=== PATIENT | female | born 1970 | race Caucasian/White ===

== ENCOUNTER 2018-01-07 11:52 | Day surgery (SDC) | payer OTHER ==
[2018-01-07] MEDS ORDERED: ACETAMINOPHEN 325 MG TABLET (FP) PO ONE (12:06)
--- NOTE | 2018-01-07 12:06 | HP ---
Satellite PMH - Chief Complaint Chief Complaint: fatigue. SAEED , SOB History of Present Illness: Seen in office for anemia. Office blood work with hgb of 7.7, low ferritin, no bleeding. pt is symptomatic. advised to come in for PRBCs. Awaiting GI appt. History Source: Patient - Past Medical History Allergies/Adverse Reactions: Allergies Allergy/AdvReac Type Severity Reaction Status Date / Time No Known Allergies Allergy Verified 12/24/12 23:59 - Current Medications Current Medications: Home Medications Medication Instructions Recorded Ferrous Sulfate *Liquid* [Feosol] 220 mg PO DAILY 12/24/12 Amoxicillin - [Amoxicillin 250mg 250 mg PO TID #30 capsule 12/25/12 Capsule -] Satellite Physical Exam - Physical Examination General Appearance: Pallor Lung: Clear to auscultation Heart: Regular rate & rhythm Abdomen: Soft Extremities: No edema Neurological: Alert, Oriented Satellite Impression/Plan - Impression/Plan Impression: for 2U PRBCS. GI f/u as an OP
[2018-01-07 12:50] LABS: BASO % 1.2 % (0-2.0); EOS % 1.6 % (0-4.5); HEMATOCRIT 25.4 % (32.4-45.2); HEMOGLOBIN 7.3 GM/dL (10.7-15.3); LYMPH % 39.4 % (8-40); MCHC 28.7 g/dl (32.0-36.0); MEAN CELL VOLUME 60.8 fl (80-96); MEAN PLT VOLUME 8.2 fl (7.5-11.1); MONO % 11.4 % (3.8-10.2); NEUT % 46.4 % (42.8-82.8); PLATELET COUNT 480 K/MM3 (134-434); RBC 4.18 M/mm3 (3.60-5.2); RDW 19.3 % (11.6-15.6); WHITE BLOOD COUNT 4.3 K/mm3 (4.0-10.0)
[2018-01-07 12:53] LABS: MCH 17.5 pg (25.7-33.7)
[2018-01-07 13:17] VITALS: BP 122/76; PULSE 93; TEMP 98
== END 2018-01-07 23:59 | disposition home or self-care (01) ==
LOC: JBLOOD 11:52 → J7W 11:56 → JBLOOD 23:59
PROVIDERS: ATTEND Internal Medicine Hematology & Oncology
PROC: 30233N1 Transfusion of Nonautologous Red Blood Cells into Peripheral Vein, Percutaneous Approach (ICD-10-PCS; principal; 2018-01-07)
DX: D50.9 Iron deficiency anemia, unspecified (principal)
CPT/HCPCS: 36415; 36430; 36511; 85025; 86850; 86900; 86901; 86922; P9038; P9058

== ENCOUNTER 2018-01-19 07:57 | Day surgery (SDC) | payer OTHER ==
[2018-01-19] MEDS ORDERED: ACETAMINOPHEN 325 MG TABLET (FP) PO ONE (10:00)
[2018-01-19] MEDS ORDERED: DIPHENHYDRAMINE 50 MG in SODIUM CHLORIDE 100 ML IVPB ONE (10:00)
[2018-01-19] MEDS ORDERED: FERRIC CARBOXYMALTOSE 750 MG in SODIUM CHLORIDE 250 ML IVPB ONE (10:30)
[2018-01-19] MEDS ORDERED: ACETAMINOPHEN 325 MG TABLET (FP) ONE (14:32)
[2018-01-19 16:16] VITALS: BP 104/70; PULSE 92; TEMP 98.7
== END 2018-01-19 16:20 | disposition home or self-care (01) ==
LOC: JONCCHEMO 07:57 → J7W 13:50 → JONCCHEMO 16:20
PROVIDERS: ATTEND Internal Medicine Hematology & Oncology
PROC: 3E033GC Introduction of Other Therapeutic Substance into Peripheral Vein, Percutaneous Approach (ICD-10-PCS; principal; 2018-01-19)
DX: D50.9 Iron deficiency anemia, unspecified (principal)
CPT/HCPCS: 96367; 96375; 96417

== ENCOUNTER 2018-01-25 07:25 | Day surgery (SDC) | payer OTHER ==
[2018-01-25] MEDS ORDERED: DIPHENHYDRAMINE 50 MG in SODIUM CHLORIDE 100 ML IVPB ONE (10:00)
[2018-01-25] MEDS ORDERED: ACETAMINOPHEN 325 MG TABLET (FP) PO ONE (10:00)
[2018-01-25] MEDS ORDERED: FERRIC CARBOXYMALTOSE 750 MG in SODIUM CHLORIDE 250 ML IVPB ONE (10:30)
[2018-01-25 18:37] VITALS: BP 110/64; PULSE 68; TEMP 97.2
== END 2018-01-25 16:00 | disposition home or self-care (01) ==
LOC: JONCCHEMO 07:25 → JONCNONCHE 07:25 → J7W 14:37 → JONCNONCHE 16:00
PROVIDERS: ATTEND Internal Medicine Hematology & Oncology
PROC: 3E033GC Introduction of Other Therapeutic Substance into Peripheral Vein, Percutaneous Approach (ICD-10-PCS; principal; 2018-01-25)
DX: D50.9 Iron deficiency anemia, unspecified (principal)
CPT/HCPCS: 96365

== ENCOUNTER 2018-03-04 07:50 | Day surgery (SDC) | payer OTHER ==
[2018-03-03 15:02] VITALS: BMI 28.3
[2018-03-04] MEDS ORDERED: PROPOFOL 20 ML ONE ×2 (09:33)
[2018-03-04 10:01] VITALS: TEMP 97.4
[2018-03-04 10:30] VITALS: PULSE 55
[2018-03-04 12:13] VITALS: BP 105/76
--- NOTE | 2018-03-07 16:41 | PATH ---
Surgical Pathology Report Patient Name: ANAY BRAY [facility]. Rec. #: [id number] /Age/Gender: 1970 (Age: 47) / F Account: [id number] Location: U-ENDOSCOPY Taken: 03/04/2018 Received: 03/04/2018 Reported: 03/07/2018 Physicians: Stanton Ferreira D.O. Specimen(s) Received A: BX DUODENUM B: BX ANGULARIS BODY C: BX GASTRIC BODY POLYPS D: BX DISTAL ESOPHAGUS Clinical History Anemia, dyspepsia Postoperative diagnosis: Gastric polyps, anemia, rule out Arias's Final Diagnosis A. DUODENUM, BIOPSY: DUODENAL MUCOSA WITHOUT SIGNIFICANT PATHOLOGIC FINDINGS. B. STOMACH, ANGULARIS AND BODY, BIOPSY: GASTRIC BODY MUCOSA WITH MILD CHRONIC GASTRITIS. IMMUNOHISTOCHEMICAL STAIN FOR H. PYLORI IS NEGATIVE. C. STOMACH, BODY, BIOPSY: FUNDIC GLAND POLYP(S). IMMUNOHISTOCHEMICAL STAIN FOR H. PYLORI IS NEGATIVE. D. DISTAL ESOPHAGUS, BIOPSY: SQUAMOCOLUMNAR MUCOSA WITH VASCULAR CONGESTION, MILD CHRONIC INFLAMMATION AND CHANGES OF MODERATE REFLUX ESOPHAGITIS. NO INTESTINAL METAPLASIA OR DYSPLASIA IDENTIFIED. Electronically Signed Cierra Cantor M.D. Gross Description A. Received in formalin, labeled "biopsy duodenum" are 3 escoto, irregular portions of soft tissue ranging from 0.1-0.5 cm. in greatest dimension. The specimens are submitted in toto in one cassette. B. Received in formalin, labeled "biopsy angularis and body" are 2 escoto, irregular portions of soft tissue measuring 0.2 and 0.8 cm. in greatest dimension. The specimens are submitted in toto in one cassette. C. Received in formalin, labeled "biopsy gastric body" are 4 escoto, irregular portions of soft tissue ranging from 0.1-0.3 cm. in greatest dimension. The specimens are submitted in toto in one cassette. D. Received in formalin, labeled "biopsy distal esophagus" is a escoto, irregular portion of soft tissue measuring 0.3 cm. in greatest dimension. The specimen is submitted in toto in one cassette. DL03/04/2018 saudi/03/04/2018
== END 2018-03-04 11:10 | disposition home or self-care (01) ==
LOC: JASU-ENDO 07:50
PROVIDERS: ATTEND Internal Medicine Gastroenterology
PROC: 0DB68ZX Excision of Stomach, Via Natural or Artificial Opening Endoscopic, Diagnostic (ICD-10-PCS; 2018-03-04)
PROC: 0DB38ZX Excision of Lower Esophagus, Via Natural or Artificial Opening Endoscopic, Diagnostic (ICD-10-PCS; 2018-03-04)
PROC: 0DB98ZX Excision of Duodenum, Via Natural or Artificial Opening Endoscopic, Diagnostic (ICD-10-PCS; principal; 2018-03-04 09:00)
DX: D64.9 Anemia, unspecified (principal); K31.7 Polyp of stomach and duodenum
CPT/HCPCS: 84703; 88305-TC; 88342-TC

== ENCOUNTER 2018-04-08 11:48 | Emergency (ER) | payer OTHER ==
[2018-04-08 12:01] VITALS: BP 111/66; PULSE 69; TEMP 98.8; BMI 27.6
--- NOTE | 2018-04-08 12:55 | PDOC ---
History of Present Illness - General Chief Complaint: Pain, Acute Stated Complaint: SWOLLEN FACE, PAIN Time Seen by Provider: 04/08/18 12:07 - History of Present Illness Initial Comments: 48-year-old female presents for evaluation of facial pain and swelling after having a molar extracted 3 days ago. She denies fever chills or night sweats. She is on amoxicillin as well as Motrin 600 for her post op infection prophylaxis and pain. 04/08/18 12:47 Past History - Past Medical History Allergies/Adverse Reactions: Allergies Allergy/AdvReac Type Severity Reaction Status Date / Time No Known Allergies Allergy Verified 04/08/18 11:58 Home Medications: Ambulatory Orders Iron Ps Complex/B12/Folic Acid [Poly-Iron 150 Forte Capsule] 1 each PO DAILY 04/15 Anemia: Yes CVA: No COPD: No DVT: No GI Disorders: Yes (DYSPEPSIA) - Surgical History Abdominal Surgery: Yes (Tubal Ligation) - Immunization History Immunization Up to Date: No - Suicide/Smoking/Psychosocial Hx Smoking Status: No Smoking History: Never smoked Have you smoked in the past 12 months: No Number of Cigarettes Smoked Daily: 0 Information on smoking cessation initiated: No Hx Alcohol Use: No Drug/Substance Use Hx: No Substance Use Type: None Review of Systems - Review of Systems Comments:: 04/08/18 12:48 GENERAL/CONSTITUTIONAL: [No fever or chills. No weakness. No weight change.] HEAD, EYES, EARS, NOSE AND THROAT: [No change in vision. No ear pain or discharge. No sore throat. L SIDED MOUTH SWELLING] CARDIOVASCULAR: [No chest pain or shortness of breath.] RESPIRATORY: [No cough, wheezing, or hemoptysis.] GASTROINTESTINAL: [No nausea, vomiting, diarrhea or constipation. No rectal bleeding.] GENITOURINARY: [No dysuria, frequency, or change in urination.] MUSCULOSKELETAL: [No joint or muscle swelling or pain. No neck or back pain.] SKIN AND BREASTS: [No rash or easy bruising.] NEUROLOGIC: [No headache, vertigo, loss of consciousness, or loss of sensation.] PSYCHIATRIC: [No depression or anxiety.] ENDOCRINE: [No increased thirst. No abnormal weight change.] HEMATOLOGIC/LYMPHATIC: [No anemia, easy bleeding, or history of blood clots.] ALLERGIC/IMMUNOLOGIC: [No hives or skin allergy. No latex allergy.] *Physical Exam - Vital Signs Last Vital Signs Temp Pulse Resp BP Pulse Ox 98.8 F 69 16 111/66 100 04/08/18 11:58 04/08/18 11:58 04/08/18 11:58 04/08/18 11:58 04/08/18 11:58 - Physical Exam Comments: GENERAL: [The patient is awake, alert, and fully oriented, in no acute distress. ] HEAD: [Normal with no signs of trauma.] EYES: [Pupils equal, round and reactive to light, extraocular movements intact, sclera anicteric, conjunctiva clear.] ENT: [Ears normal, nares patent, oropharynx clear without exudates. Moist mucous membranes.]There is left-sided facial swelling the mouth was inspected left rear molar is been extracted there is mild swelling about the area without erythema or fluctuance the gingiva is tender NECK: [Normal range of motion, supple without lymphadenopathy, JVD, or masses.] LUNGS: [Breath sounds equal, clear to auscultation bilaterally. No wheezes, and no crackles.] HEART: [Regular rate and rhythm, normal S1 and S2 without murmur, rub or gallop. ] ABDOMEN: [Soft, nontender, normoactive bowel sounds. No guarding, no rebound. No masses.] EXTREMITIES: [Normal range of motion, no edema. No clubbing or cyanosis. No cords, erythema, or tenderness.] NEUROLOGICAL: [Cranial nerves II through XII grossly intact. Normal speech, normal gait.] PSYCH: [Normal mood, normal affect.] SKIN: [Warm, Dry, normal turgor, no rashes or lesions noted.] 04/08/18 12:55 Medical Decision Making - Medical Decision Making 48-year-old female 3 days status post left lower molar extraction with swelling and pain she is already on amoxicillin and Motrin for pain. She will follow-up with her oral surgeon in the next day or so 04/08/18 12:55 *DC/Admit/Observation/Transfer Diagnosis at time of Disposition: H/O tooth extraction - Referrals Referrals: Acosta Gonzalez MD [Primary Care Provider] - Malik Farfan [Non Staff, Medical] - - Patient Instructions Printed Discharge Instructions: Tooth Extraction, DI on Tooth Extraction Additional Instructions: Follow-up with her oral surgeon next day or to return to the emergency room if symptoms worsen or go unresolved prior to follow up - Post Discharge Activity
== END 2018-04-08 13:07 | disposition home or self-care (01) ==
LOC: JERFT 11:48
DX: K08.199 Complete loss of teeth due to other specified cause, unspecified class (principal); G89.18 Other acute postprocedural pain; G50.1 Atypical facial pain
CPT/HCPCS: 99281-25